=== PATIENT | male | born 1975 | race Caucasian/White ===

== ENCOUNTER 2018-09-24 17:14 | Emergency (ER) | payer OTHER ==
[2018-09-24] MEDS ORDERED: IBUPROFEN 800 MG TAB PO ONE (17:50)
--- NOTE | 2018-09-24 17:53 | EDPHY ---
H & P Stated Complaint: Injury to right wrist while snowboarding. - Personal History Current Tetanus Diphtheria and Acellular Pertussis (TDAP): Yes - Medical/Surgical History Hx Asthma: No Hx Chronic Respiratory Disease: No Hx Diabetes: No Hx Cardiac Disease: No Hx Renal Disease: No Hx Cirrhosis: No Hx Alcoholism: No Hx HIV/AIDS: No Hx Splenectomy or Spleen Trauma: No Other PMH: Asthma - Social History Smoking Status: Never smoked Time Seen by Provider: 09/24/18 17:50 HPI/ROS: HPI CHIEF COMPLAINT: Right wrist pain after falling on snowboard. HISTORY OF PRESENT ILLNESS: This is a 43-year-old male, presents to the emergency room by private vehicle with right wrist pain. The patient was snowboarding at [employer] he fell on his outstretched right hand. He now has distal right radius pain. Good sensation, good cap refill good distal pulse however swelling to the distal radius. Has pain present. Currently 01/23. Past Medical History: Denies medical history Past Surgical History: Denies surgical history Social History: Denies drugs alcohol tobacco Family History: Noncontributory ROS REVIEW OF SYSTEMS: 10 Systems were reviewed and negative with the exception of the elements mentioned in the history of present illness. Exam Constitutional appears well nontoxic triage nursing summary reviewed, vital signs reviewed, awake/alert. Eyes normal conjunctivae and sclera, EOMI, PERRLA. HENT normal inspection, atraumatic, moist mucus membranes, no epistaxis, neck supple/ no meningismus, no raccoon eyes. Respiratory clear to auscultation bilaterally, normal breath sounds, no respiratory distress, no wheezing. Cardiovascular rate normal, regular rhythm, no murmur, no edema, distal pulses normal. Gastrointestinal soft, non-tender, no rebound, no guarding, normal bowel sounds, no distension, no pulsatile mass. Genitourinary no CVA tenderness. Musculoskeletal right wrist: Tenderness palpation over the distal wrist distal radius. Swelling noted. Otherwise neurovasculary intact good distal pulse, good cap refill, good recreation facility manager strength, swelling noted over the distal radius. Sensation intact. no midline vertebral tenderness, full range of motion, no calf swelling, no tenderness of extremities, no meningismus, good pulses, neurovascularly intact. Skin pink, warm, & dry, no rash, skin atraumatic. Neurologic awake, alert and oriented x 3, AAOx3, moves all 4 extremities equally, motor intact, sensory intact, CN II-XII intact, normal cerebellar, normal vision, normal speech. Psychiatric normal mood/affect. Heme/Lymph/Immune no lymphadenopathy. Differential Diagnosis: Includes but is not limited to in a particular order right wrist fracture, right wrist sprain/contusion, distal radius fracture Medical Decision Making: Plan for this patient x-ray right wrist, splint, ibuprofen for pain ice pack. Re-evaluate Re-evaluation: Patient x-ray of the right wrist reviewed this shows a distal comminuted impacted right radial fracture. Image interpreted by myself. Patient will be placed in a sugar-tong splint. Patient will need to follow up with Orthopedics. The patient was splinted in a sugar-tong splint. Post splint placement he is neurovascular intact good cap refill, good radial pulse. Good sensation good finger movement. I do recommend sling, ice/elevation. Will consult Orthopedics Dr. Islas to discuss the case. X-ray reviewed by Dr. Islas. Plan will be for better alignment and re-splint. Hematoma block performed due to pain control for manipulation/ and re-splinting. 2053: Hematoma block was performed by JARROD Novoa. After Block: I was able to gently manipulate and re-splint him with a sugar-tong splint. Post splint placement he is neurovascularly intact good cap refill, sensation intact. Feels comfortable in his splint. No compartment syndrome. no significant pain. Post reduction x-ray pending Post reduction x-ray reviewed by myself. Splint appropriate and better alignment. Better then previous x-ray. Patient re-evaluated after splint placement neurovascular intact. Good sensation, good cap refill, and is comfortable in this splint. Sinai provided for pain control. Return precautions discussed with the patient, including compartment syndrome. He is comfortable this and understands discharge plan and return precautions. Understands he should follow up with Orthopedics. Keep his arm elevated, ice, Sinai for severe pain, ibuprofen for mild pain. Return if worsening pain. (Abhinav Roberts) Constitutional: Initial Vital Signs Temperature (C) 36.4 C 09/24/18 17:22 Heart Rate 88 09/24/18 17:22 Respiratory Rate 16 09/24/18 17:22 Blood Pressure 151/97 H 09/24/18 17:22 O2 Sat (%) 96 09/24/18 17:22 O2 Delivery Mode Room Air Allergies/Adverse Reactions: No Known Allergies Allergy (Unverified 09/24/18 17:27) Home Medications: Medication Instructions Recorded Hydrocodone/APAP 5/325 [Sinai 1 - 2 tab PO Q4H PRN #10 tab 09/24/18 5/325] Medical Decision Making Procedures: Procedure: Regional anesthesia. Risks, benefits an indication for regional anesthesia discussed with the patient who has given verbal consent. A right wrist hematoma block was performed for right distal radius fracture. The block was performed with 1% lidocaine without epinephrine, total of 6 cc using a 22 gauge needle. Patient was cleaned and prepped in sterile fashion prior to injection.. Blood was aspirated to confirm placement. The patient experienced near complete pain relief. The procedure was performed by myself. (Tre Richards) - Data Points Medications Given: Discontinued Medications Hydrocodone Bitart/Acetaminophen (Sinai 5/325mg Prepack#6) 1 btl TAKEHOME EDNOW ONE Stop: 09/24/18 20:34 Last Admin: 09/24/18 21:28 Dose: 1 btl Ibuprofen (Motrin) 800 mg PO EDNOW ONE Stop: 09/24/18 17:51 Last Admin: 09/24/18 18:00 Dose: 800 mg Departure - Departure Disposition: Home, Routine, Self-Care Clinical Impression: Wrist fracture Qualifiers: Encounter type: initial encounter Fracture type: closed Laterality: right Qualified Code(s): S62.101A - Fracture of unspecified carpal bone, right wrist, initial encounter for closed fracture Condition: Good Instructions: Hydrocodone/Acetaminophen (By mouth), Wrist Fracture in Adults ( ED) Additional Instructions: 1. Splint for comfort. 2. Ice. 3. Sinai for severe pain 4. Follow up with Orthopedics 5. Return to the emergency room if worsening symptoms Referrals: NONE *PRIMARY CARE P,. [Primary Care Provider] - As per Instructions Marysol Islas MD [Medical Doctor] - As per Instructions Prescriptions: Hydrocodone/APAP 5/325 [Sinai 5/325] 1 - 2 tab PO Q4H PRN #10 tab PRN Reason: Pain, Moderate
[2018-09-24] MEDS ORDERED: HYDROCOD/APAP 5/325 PREPACK#6 BTL TAKEHOME ONE (20:33)
[2018-09-24 21:38] VITALS: BP 128/80
== END 2018-09-24 21:38 | disposition home or self-care (01) ==
PROC: 0PSHXZZ Reposition Right Radius, External Approach (ICD-10-PCS; principal; 2018-09-24)
DX: S52.571A Other intraarticular fracture of lower end of right radius, initial encounter for closed fracture (principal); V00.311A Fall from snowboard, initial encounter; Y93.23 Activity, snow (alpine) (downhill) skiing, snowboarding, sledding, tobogganing and snow tubing; Y92.828 Other wilderness area as the place of occurrence of the external cause; Y99.8 Other external cause status
CPT/HCPCS: A4565